=== PATIENT | male | born 1980 | race African-American/Black ===

== ENCOUNTER 2020-12-18 11:43 | Emergency (ER) | payer MEDICAID ==
[~2020-12-18] VITALS: Ht 188 cm; Wt 172.7 kg
[2020-12-18 11:46] VITALS: Ht 188 cm; Wt 172.7 kg
[2020-12-18 12:13] LABS: HEMATOCRIT 43.6 % (42.0-54.0); HEMOGLOBIN 14.6 g/dL (13.5-17.5); MCH 27.6 pg (26.0-34.0); MCHC 33.6 g/dL (31.0-37.0); MCV 82.2 fL (80.0-100.0); MEAN PLATELET VOLUME 7.4 fL (7.4-10.4); PLATELET COUNT 225 10x3/uL (130-400); RBC 5.31 10x6/uL (4.20-6.10); RDW 13.3 % (11.5-14.5); WBC 6.3 10x3/uL (4.8-10.8)
[2020-12-18 12:42] LABS: EOSINOPHILS 2 % (0-7); LYMPHOCYTES 28 % (15-50); MONOCYTES 3 % (2-11); NEUTROPHILS 65 % (40-80)
[2020-12-18 12:43] LABS: PLATELET ESTIMATE NORMAL
[2020-12-18 13:04] LABS: ANION GAP 16.7 mmol/L (8-16); CREATININE - SERUM 1.2 mg/dL (0.6-1.3); POTASSIUM - SERUM 3.7 mmol/L (3.5-5.1)
[2020-12-18 13:09] LABS: ALBUMIN 3.8 g/dL (3.4-5.0); BILIRUBIN - TOTAL 0.35 mg/dL (0.2-1.3); PROTEIN - SERUM 7.5 g/dL (6.4-8.2)
[2020-12-18 13:39] LABS: CKMB 3.7 U/L (0.0-3.6); CREATINE KINASE 446 UL (21-232)
[2020-12-18 15:04] LABS: BILIRUBIN NEGATIVE (NEGATIVE); KETONE NEGATIVE (NEGATIVE); NITRITE NEGATIVE (NEGATIVE); UROBILINOGEN NORMAL mg/dL (< 2)
[2020-12-18] MEDS ORDERED: GLUCOPHAGE500 MG PO (15:21)
[2020-12-18 15:34] VITALS: BP 136/82
== END 2020-12-18 15:36 | disposition home or self-care (01) ==
LOC: D.ER 11:43
PROVIDERS: Family Medicine
DX: R10.9 Unspecified abdominal pain (principal); E86.0 Dehydration; R79.89 Other specified abnormal findings of blood chemistry; R73.9 Hyperglycemia, unspecified